=== PATIENT | male | born 1990 | race African-American/Black ===

== ENCOUNTER 2020-06-23 03:15 | Emergency (ER) | payer MEDICAID ==
[~2020-06-23] VITALS: Ht 188 cm; Wt 90.0 kg
[2020-06-23 08:08] VITALS: BP 124/90
[2020-06-23 08:11] LABS: BASOPHILS % 0.4 % (0.0-2.0); EOSINOPHILS % 1.4 % (0.0-5.0); HEMATOCRIT. 41.8 % (42.0-52.0); HEMOGLOBIN. 13.1 g/dL (14.0-18.0); LYMPHOCYTES % 40.3 % (20.0-50.0); MEAN CORPUSCULAR HEMOGLOBIN 23.3 pg (28.0-32.0); MEAN CORPUSCULAR VOLUME 74.2 fL (80.0-94.0); MEAN PLATELET VOLUME 8.5 fl (7.4-10.4); MONOCYTES % 13.7 % (2.0-8.0); NEUTROPHILS % 44.2 % (40.0-76.0); PLATELET 223 x1000/uL (130-400); RED BLOOD CELL COUNT 5.64 mill/uL (4.7-6.1)
[2020-06-23 08:22] LABS: CHLORIDE 113 mEq/L (98-107)
== END 2020-06-23 09:00 | disposition home or self-care (01) ==
LOC: ER 03:39
DX: R68.89 Other general symptoms and signs (principal); Z59.0 Homelessness; J45.909 Unspecified asthma, uncomplicated; E11.9 Type 2 diabetes mellitus without complications; I10 Essential (primary) hypertension
CPT/HCPCS: 36415; 80048; 85025; 93005; 99284